=== PATIENT | female | born 1990 | race Caucasian/White ===

== ENCOUNTER 2018-10-06 05:10 | Day surgery (SDC) | payer MEDICAID ==
[2018-10-03 12:22] LABS: BASOPHILS 0.2 % (0-2); EOSINOPHILS 2.1 % (0-7); HEMATOCRIT 36.9 % (36.0-48.0); HEMOGLOBIN 11.7 g/dL (12-16); IMMATURE GRANULOCYTES 0.2 % (0-5); LYMPHOCYTES 37.5 % (15-50); MCH 27.8 pg (26.0-34.0); MCHC 31.7 g/dL (31.0-37.0); MCV 87.6 fL (80.0-100.0); MEAN PLATELET VOLUME 11.2 fL (7.4-10.4); MONOCYTES 5.2 % (2-11); NEUTROPHILS 54.8 % (40-80); PLATELET COUNT 256 10x3/uL (130-400); RBC 4.21 10x6/uL (4.00-5.40); RDW 13.9 % (11.5-14.5); WBC 6.3 10x3/uL (4.8-10.8)
[~2018-10-06] VITALS: Ht 165.1 cm; Wt 65.3 kg
[2018-10-06 06:30] VITALS: BP 104/73; Ht 165.1 cm; Wt 65.3 kg
[2018-10-06 06:44] LABS: HCG URINE NEGATIVE (NEGATIVE)
--- NOTE | 2018-10-06 11:39 | NUR ---
TORADOL WAS GIVEN PER ORDER AT 0934. PAIN LEVEL 10/10. NOW DOWN TO 8/10. PT WAS GIVEN PERCOCET TAB PER ORDER AT 1003. HOWEVER PT HAD AN EMESIS EPISODE WITH DRY HEAVING THROUGHOUT SHIFT. THE PILL WAS VOMITED WHOLE. PAIN LEVEL STILL AT 8/10. ZOFRAN PER ORDER WAS GIVEN FOR N/V, AND DID NOT HELP PER PT. PT STILL IS DRY HEAVING AND HAD 1 EMESIS EPISODE. ADMINSITERED PHENERGAN IM. CALLED DR. CAMPBELL AND INFORMED HIM OF HIS PT'S STATUS. HE ORDERED ZOFRAN 4 MG IV AND DILAUDID 1 MG IV. WILL MONITOR PT'S N/V AND ADMINISTER THE ZOFRAN IF PT CONTINUES FEELING NAUSEATED. WILL ADMINSTER DILAUDID.
--- NOTE | 2018-10-06 12:02 | NUR ---
PT REFUSING PAIN AND ANTI-N/V MEDS. PT STATES READY TO GO HOME. DC INSTRUCTIONS GIVEN TO PT/FAMILY. STATE UNDERSTANDING. DC'D IV CATH FULLY INTACT.
--- NOTE | 2018-10-06 12:29 | NUR ---
PT LEFT UNIT VIA WC AT 1210
--- NOTE | 2018-10-10 07:49 | OP ---
PATIENT NAME: CHAS CONNELLY MEDICAL RECORD: [id number] :86 LOCATION:D[facility] ADMISSION DATE: SURGEON: KIM CAMPBELL MD DATE OF OPERATION: 10/06/2018 PREOPERATIVE DIAGNOSIS: Undesired fertility. POSTOPERATIVE DIAGNOSIS: Undesired fertility. PROCEDURE PERFORMED: 1. Diagnostic laparoscopy. 2. Bilateral tubal occlusion using Falope rings. SURGEON: Kim Campbell MD ORAL THERAPIST: Victor Manuel Ly. ANESTHETIC: General. FINDINGS: Unremarkable tubes and ovaries bilaterally. Uterus is slightly enlarged with an irregular contour. No active endometriosis is identified. What was visualized of the abdominal anatomy is unremarkable. SPECIMENS REMOVED: Not applicable. PATHOLOGY: Not applicable. ESTIMATED BLOOD LOSS: Minimal FLUIDS: 1 liter lactated Ringer's. URINE OUTPUT: Quantity sufficient void prior to this procedure. COMPLICATIONS: None. DRAINS: None. INDICATIONS: The patient is a 28-year-old multiparous female with undesired fertility. The patient understands risks and benefits of this procedure. The patient understands the possibility of failure of 1 in a 100 with an increased chance of an ectopic , which can be a life-threatening condition if not treated. The patient acknowledged all risks and benefits and wishes to proceed. DESCRIPTION OF PROCEDURE: After informed consent was assured, the patient was taken to the operating room, anesthetic was obtained without difficulty. The patient is now prepped and draped in the usual sterile fashion being supine on the table. Incision was made at the umbilicus to accommodate a 5-mm trocar, which was inserted without difficulty and pneumoperitoneum developed. Accessory trocar was placed 2 fingerbreadths above the symphysis. Through this 8-mm port, a blunt probe was inserted and the bowel swept free of the pelvis with the patient in Trendelenburg, both tubes were visualized. The Falope ring applicator with 2 Silastic rings attached are placed into the pelvis. First, a ring is placed on the isthmic portion of the right tube. There is good crease formation and blanching. After this knuckle has been developed, attention was directed to the opposite tube where again it was followed to its fimbriated end OPERATIVE REPORT [id number] CHAS CONNELLY and a segment of the isthmic portion of the left tube selected and the ring applied. 5 cc of Marcaine was placed directly over both occlusion sites. The accessory trocar was removed as the pneumoperitoneum was being released and then the primary trocar removed after release of the pneumoperitoneum. Skin sites were reapproximated with subcuticular stitch and sterile dressing applied. Sponge, lap, needle counts were correct times 2. The patient was awoken and went to the recovery area in stable condition. TRANSINT:[id number] Voice Confirmation ID: [id number] DOCUMENT ID: [id number] KIM CAMPBELL MD at 0749 CC: [id number] DICTATION DATE: 10/06/18 0759 FRUIT ROOM HAND: 10/06/[address] [facility] [place] 10/06/18 [id number] [place] [address]
== END 2018-10-06 12:10 | disposition home or self-care (01) ==
LOC: D.OPS 05:10 → D.PAN 07:30 → D.OPS 12:10
PROVIDERS: Obstetrics & Gynecology
DX: Z30.2 Encounter for sterilization (principal); Z30.09 Encounter for other general counseling and advice on contraception